=== PATIENT | male | born 1960 | race American Indian/Alaskan Native ===

== ENCOUNTER 2017-02-09 06:16 | Emergency (ER) | payer OTHER ==
[2017-02-09] MEDS ORDERED: PERCOCET 5/325 PO ONE (09:52)
[2017-02-09] MEDS ORDERED: TORADOL IM ONE (09:52)
--- NOTE | 2017-02-09 11:02 | XRay Report ---
LEFT HIP RADIOGRAPHS INDICATION: Status post fall. Right groin pain. COMPARISON: None similar. FINDINGS: AP pelvic, frog-leg and crosstable lateral radiographs, 4 images demonstrate intact SI and hip joints and remainder pelvic bony articulation. Lower lumbar degenerative spurring. Right hemipelvic phleboliths. Nonobstructive bowel gas pattern. CONCLUSION: No acute plain radiographic abnormality, as described. Thank you for the opportunity to participate in this patient's care.
--- NOTE | 2017-02-09 11:04 | XRay Report ---
LEFT KNEE RADIOGRAPHS INDICATION: Left knee pain and swelling. Status post fall. COMPARISON: None similar at this institution. FINDINGS: AP, lateral, oblique and sunrise views of the left knee, 5 images demonstrate 2 horizontal proximal tibial metaphyseal threaded screws with slightly inferior old healed metadiaphyseal deformity. Knee joint tilt with moderate tricompartmental degenerative changes, including spurring and joint space narrowing noted, more so suspected involving the patellofemoral and lateral compartments. Faint chondrocalcinosis may also be present. Osteopenia/osteoporosis. Superior patellar enthesophytes. Moderate to large suprapatellar effusion. CONCLUSION: Left knee postsurgical changes, moderately advanced tricompartment degenerative changes and suprapatellar effusion, amongst others, as described. Please correlate. Thank you for the opportunity to participate in this patient's care.
--- NOTE | 2017-02-09 11:30 | Emergency Department Report ---
ED Extremity Problem HPI - General Chief complaint: Extremity Injury, Lower Stated complaint: LEG PAIN Time Seen by Provider: 02/09/17 09:45 Source: patient Mode of arrival: Ambulatory Limitations: No Limitations - History of Present Illness Initial comments: 57 year male with a past medical history left knee surgery presents to hospital complaints of pain to right groin and left knee after fall yesterday. Patient states he was walking to the bus stop in the dark and tripped over a rock and fell. No appearance of head injury or LOC. Patient complains of moderate pain to right groin and left knee down to distal leg but not including ankle and foot. Pain is constant, aching and throbbing, worse with movement and palpation. No alleviating factors reported. No reports of back pain or urinary incontinence. Severity scale (0 -10): 7 - Related Data Previous Rx's Medication Instructions Recorded Last Taken Type HYDROcodone/APAP 5-325 [[place] 1 each PO Q6HR PRN #20 tablet 02/09/17 Unknown Rx 5/325] Ibuprofen [Motrin] 800 mg PO Q8HR PRN #30 tablet 02/09/17 Unknown Rx Allergies Allergy/AdvReac Type Severity Reaction Status Date / Time No Known Allergies Allergy Unverified 06/18/14 05:07 ED Review of Systems ROS: Stated complaint: LEG PAIN Other details as noted in HPI Comment: All other systems reviewed and negative Other: Constitutional: No fevers chills or weight loss Eyes: No eye pain visual changes or discharge ENT: No ear pain or throat pain Neck: Denies pain Respiratory: Denies cough wheezing shortness of breath Cardiovascular: Denies chest pain, palpitations, syncope GI: Denies abdominal pain, nausea, vomiting, diarrhea : Denies dysuria Musculoskeletal: as per hpi Skin: Denies rash, lesions, erythema Neurologic: Denies headache, numbness, weakness Psychiatric: Denies suicidal ideation, hallucinations ED Past Medical Hx - Past Medical History Previous Medical History?: No - Surgical History Additional Surgical History: left knee surgery - Social History Smoking Status: Current Every Day Smoker Substance Use Type: None - Medications Home Medications: Home Medications Medication Instructions Recorded Confirmed Last Taken Type HYDROcodone/APAP 5-325 [[place] 1 each PO Q6HR PRN #20 tablet 02/09/17 Unknown Rx 5/325] Ibuprofen [Motrin] 800 mg PO Q8HR PRN #30 tablet 02/09/17 Unknown Rx ED Physical Exam - General Limitations: No Limitations - Other Other exam information: General: No limitations, patient is alert in no acute distress Head exam: Atraumatic, normocephalic Eyes exam: Normal appearance, pupils equal reactive to light, extraocular movements intact ENT: Moist mucous membrane, normal oropharynx Neck exam: Normal inspection, full range of motion, no meningismus nontender Respiratory exam: Clear to auscultation bilateral, no wheezes, rales, crackles Cardiovascular: Normal rate and rhythm, normal heart sounds Abdomen: Soft, nondistended, and nontender, with normal bowel sounds, no rebound, or guarding Extremity: Right inguinal pain with full range of motion of hip without shortening or deformity. Generalized left knee swelling with anterior tenderness. Pain with flexion. No deformity. 2+ DP pulses equal bilateral Back: Normal Inspection, full range of motion, no tenderness Neurologic: Alert, oriented x3, cranial nerves intact, no motor or sensory deficit Psychiatric: normal affect, normal mood Skin: Warm, dry, intact ED Course Vital Signs 02/09/17 02/09/17 06:36 09:54 Temperature 98.1 F 97.6 F Pulse Rate 75 69 Respiratory 16 Rate Blood Pressure 160/115 Blood Pressure 144/101 [Right] O2 Sat by Pulse 100 Oximetry - Reevaluation(s) Reevaluation #1: 02/09/17 11:55 BP improved without requirement meds for still borderline elevated ED Medical Decision Making - Radiology Data Radiology results: report reviewed Left hip x-ray: No acute finding Right knee x-ray: Left knee postsurgical changes. Mildly advanced tricompartmental degenerative changes with suprapatellar effusion. - Medical Decision Making Patient be discharged home with pain meds. Patient encouraged to follow-up with primary care doctor for blood pressure recheck given elevated BP. Orthopedic for also will be provided he declined offer for crutches - Differential Diagnosis fxt, contusion, sprain, new onset hypertension Critical Care Time: No Critical care attestation.: If time is entered above; I have spent that time in minutes in the direct care of this critically ill patient, excluding procedure time. ED Disposition Clinical Impression: Contusion of left knee, Strain of right inguinal muscle, Elevated blood pressure Degenerative arthritis of knee Qualifiers: Laterality: left Disposition: DISCHARGED TO HOME OR SELFCARE Is pt being admited?: No Does the pt Need Aspirin: No Condition: Stable Instructions: Knee Sprain (ED), How to Take a Blood Pressure (ED) Additional Instructions: Take the medication as prescribed. Return if symptoms worsen. Follow-up with your doctor regarding her blood pressure for recheck and evaluation. Follow with orthopedic doctor for further management of your knee Prescriptions: HYDROcodone/APAP 5-325 [[place] 5/325] 1 each PO Q6HR PRN #20 tablet PRN Reason: Pain Ibuprofen [Motrin] 800 mg PO Q8HR PRN #30 tablet PRN Reason: Pain Referrals: JOSEE DALLAS MD [Staff Physician] - 3-5 Days PRIMARY CAREMD [Primary Care Provider] - 3-5 Days Forms: Work/School Release Form(ED) Time of Disposition: 11:52
[2017-02-09 12:05] VITALS: BP 145/105
== END 2017-02-09 12:06 | disposition home or self-care (01) ==
LOC: ED 06:16
DX: S39.011A Strain of muscle, fascia and tendon of abdomen, initial encounter (principal); S80.02XA Contusion of left knee, initial encounter; M17.12 Unilateral primary osteoarthritis, left knee; R03.0 Elevated blood-pressure reading, without diagnosis of hypertension; F17.200 Nicotine dependence, unspecified, uncomplicated; W20.8XXA Other cause of strike by thrown, projected or falling object, initial encounter; Y93.01 Activity, walking, marching and hiking; Y99.8 Other external cause status; Y92.521 Bus station as the place of occurrence of the external cause
CPT/HCPCS: 73502; 73564; 96372; 99283; J1885

== ENCOUNTER 2017-04-29 06:54 | Emergency (ER) | payer OTHER ==
[2017-04-29] MEDS ORDERED: NACL 0.9% 1000 ML 1,000 ML IV ONE (07:14)
[2017-04-29 08:01] LABS: Basophils % (Auto) 0.7 % (0.0-1.8); Hematocrit 44.1 % (35.5-45.6); Hemoglobin 14.6 gm/dl (11.8-15.2); Mean Corpuscular HGB Conc 33 % (32-34); Mean Corpuscular Hemoglobin 29 pg (28-32); Mean Corpuscular Volume 89 fl (84-94); Platelet Count 291 K/mm3 (140-440); Red Blood Count 4.97 M/mm3 (3.65-5.03); Red Cell Distribution Width 15.8 % (13.2-15.2); White Blood Count 9.4 K/mm3 (4.5-11.0)
[2017-04-29 08:09] LABS: INR 0.99 (0.87-1.13)
[2017-04-29 08:10] LABS: Partial Thromboplastin Time 28.5 Sec. (24.2-36.6)
[2017-04-29 09:46] LABS: Alanine Aminotransferase 20 units/L (7-56); Albumin 4.3 g/dL (3.9-5); Albumin/Globulin Ratio 1.4 %; Alkaline Phosphatase 64 units/L (35-129); Anion Gap 20 mmol/L; BUN/Creatinine Ratio 10.83; Blood Urea Nitrogen 13 mg/dL (9-20); Calcium 9.2 mg/dL (8.4-10.2); Carbon Dioxide 23 mmol/L (22-30); Chloride 104.3 mmol/L (98-107); Glucose 98 mg/dL (75-100); Lipase 21 units/L (13-60); Potassium 4.8 mmol/L (3.6-5.0); Sodium 142 mmol/L (137-145); Total Protein 7.3 g/dL (6.3-8.2)
--- NOTE | 2017-04-29 16:35 | Emergency Department Report ---
ED GI Bleed HPI - General Chief complaint: GI Bleed Stated complaint: BLOOD IN STOOL Time Seen by Provider: 04/29/17 16:02 Source: patient Mode of arrival: Ambulatory Limitations: No Limitations - History of Present Illness complaint: blood on toilet paper, blood streaked stool Onset/Timin -: Gradual, days(s) Radiation: none Severity scale (0 -10): 1 Quality: painless Consistency: intermittent Improves with: none Worsens with: none Context: hemorrhoids Associated Symptoms: denies: abdominal pain, nausea, vomiting, epistaxis, fever/ chills, headaches, loss of appetite, malaise, easy bruising, rash, shortness of breath, syncope, weakness - Related Data Previous Rx's Medication Instructions Recorded Last Taken Type HYDROcodone/APAP 5-325 [[place] 1 each PO Q6HR PRN #20 tablet 02/09/17 Unknown Rx 5/325] Ibuprofen [Motrin] 800 mg PO Q8HR PRN #30 tablet 02/09/17 Unknown Rx Allergies Allergy/AdvReac Type Severity Reaction Status Date / Time No Known Allergies Allergy Unverified 06/18/14 05:07 ED Review of Systems ROS: Stated complaint: BLOOD IN STOOL Other details as noted in HPI Constitutional: denies: chills, fever Eyes: denies: eye pain, eye discharge, vision change ENT: denies: ear pain, throat pain Respiratory: denies: cough, shortness of breath, wheezing Cardiovascular: denies: chest pain, palpitations Endocrine: no symptoms reported Gastrointestinal: denies: abdominal pain, nausea, diarrhea Genitourinary: denies: urgency, dysuria Musculoskeletal: denies: back pain, joint swelling, arthralgia Skin: denies: rash, lesions Neurological: denies: headache, weakness, paresthesias Psychiatric: denies: anxiety, depression Hematological/Lymphatic: denies: easy bleeding, easy bruising ED Past Medical Hx - Past Medical History Previous Medical History?: No - Surgical History Past Surgical History?: Yes Additional Surgical History: left knee surgery - Social History Smoking Status: Current Every Day Smoker Substance Use Type: Alcohol - Medications Home Medications: Home Medications Medication Instructions Recorded Confirmed Last Taken Type HYDROcodone/APAP 5-325 [[place] 1 each PO Q6HR PRN #20 tablet 02/09/17 Unknown Rx 5/325] Ibuprofen [Motrin] 800 mg PO Q8HR PRN #30 tablet 02/09/17 Unknown Rx ED Physical Exam - General Limitations: No Limitations General appearance: alert, in no apparent distress - Head Head exam: Present: atraumatic, normocephalic - Eye Eye exam: Present: normal appearance - ENT ENT exam: Present: mucous membranes moist - Neck Neck exam: Present: normal inspection - Respiratory Respiratory exam: Present: normal lung sounds bilaterally. Absent: respiratory distress - Cardiovascular Cardiovascular Exam: Present: regular rate, normal rhythm. Absent: systolic murmur, diastolic murmur, rubs, gallop - GI/Abdominal GI/Abdominal exam: Present: soft, normal bowel sounds. Absent: distended, tenderness, guarding, rebound, rigid, hyperactive bowel sounds, hypoactive bowel sounds, organomegaly, mass, bruit, pulsatile mass, hernia - Rectal Rectal exam: Present: normal inspection, normal rectal tone, heme (-) stool, hemorrhoids, prostate enlargement. Absent: black stool, bloody stool, fecal impaction, mass, tenderness, normal prostate, prostate tenderness - Extremities Exam Extremities exam: Present: normal inspection - Back Exam Back exam: Present: normal inspection - Neurological Exam Neurological exam: Present: alert, oriented X3 - Psychiatric Psychiatric exam: Present: normal affect, normal mood - Skin Skin exam: Present: warm, dry, intact, normal color. Absent: rash ED Course Vital Signs 04/29/17 04/29/17 07:11 11:22 Temperature 98.3 F 97.5 F L Pulse Rate 84 72 Respiratory 20 14 Rate Blood Pressure 152/113 146/116 O2 Sat by Pulse 100 100 Oximetry ED Medical Decision Making - Lab Data Result diagrams: 04/29/17 07:26 04/29/17 07:26 - Medical Decision Making patient doing well , likely bleeding from hemorrhoids, will give follow up with GI for due of colonoscopy Critical care attestation.: If time is entered above; I have spent that time in minutes in the direct care of this critically ill patient, excluding procedure time. ED Disposition Clinical Impression: BRBPR (bright red blood per rectum) Disposition: DISCHARGED TO HOME OR SELFCARE Is pt being admited?: No Does the pt Need Aspirin: No Condition: Good Instructions: Hemorrhoids (ED), Rectal Bleeding (ED) Referrals: PRIMARY CARE, [Primary Care Provider] - 3-5 Days STANTON JAIME MD [Staff Physician] - 3-5 Days Forms: Accompanied Note, Work/School Release Form(ED) Time of Disposition: 16:35
[2017-04-29 16:59] VITALS: BP 142/92
== END 2017-04-29 16:58 | disposition home or self-care (01) ==
LOC: ED 06:54
DX: K62.5 Hemorrhage of anus and rectum (principal); F17.200 Nicotine dependence, unspecified, uncomplicated
CPT/HCPCS: 36415; 80053; 83690; 85025; 85610; 85730; 86850; 86900; 86901; 93005; 93010; 99284

== ENCOUNTER 2018-09-18 06:38 | Emergency (ER) | payer SELFPAY ==
[2018-09-18 07:21] VITALS: BP 144/103
--- NOTE | 2018-09-18 09:54 | Emergency Department Report ---
ED Rash HPI - HPI Chief Complaint: Skin Rash Stated Complaint: RT ARM REDNESS Time Seen by Provider: 09/18/18 09:08 Rash Symptoms: No Itching, No Facial Swelling, No Tongue/Oral Swelling, No Breathing Difficulties, No Choking Sensation, No Wheezing/Dyspnea, No Blistering , No Fever Severity: moderate Other History: Was cooking fish a couple days ago, and hot grease splattered on his right arm resulting in what he describes as spots. The spots are nonpruritic and does not cause any pain. He is worried about reaction. No discharge, fever, chills, sweats, shortness of breath or wheezing. Patient states medications to make the spots go away ED Review of Systems ROS: Stated complaint: RT ARM REDNESS Other details as noted in HPI Constitutional: denies: chills, fever Eyes: denies: eye pain, eye discharge, vision change ENT: denies: ear pain, throat pain Respiratory: denies: cough, shortness of breath, wheezing Cardiovascular: denies: chest pain, palpitations Endocrine: no symptoms reported Gastrointestinal: denies: abdominal pain, nausea, diarrhea Genitourinary: denies: urgency, dysuria Musculoskeletal: denies: back pain, joint swelling, arthralgia Skin: change in color. denies: rash, lesions Neurological: denies: headache, weakness, paresthesias Psychiatric: denies: anxiety, depression Hematological/Lymphatic: denies: easy bleeding, easy bruising ED Past Medical Hx - Past Medical History Previous Medical History?: No - Surgical History Past Surgical History?: Yes Additional Surgical History: left knee surgery - Social History Smoking Status: Current Every Day Smoker Substance Use Type: None - Medications Home Medications: Home Medications Medication Instructions Recorded Confirmed Last Taken Type HYDROcodone/APAP 5-325 [[place] 1 each PO Q6HR PRN #20 tablet 02/09/17 Unknown Rx 5/325] Ibuprofen [Motrin] 800 mg PO Q8HR PRN #30 tablet 02/09/17 Unknown Rx Triamcinolone 0.1% [Kenalog 0.1% 1 applic TP TID #1 tube 09/18/18 Unknown Rx CREAM] Rash Exam - Exam General: Vital signs noted. No distress. Alert and acting appropriately. HEENT: No Periorbital Edema, No Conjuctival Injection, No Chemosis, No Perioral Edema, No Tongue Edema, No Uvular Edema, No Compromised Airway, No Drooling Lungs: Yes Good Air Exchange (Normal Breath Sounds), No Wheezes, No Ronchi, No Stridor, No Cough, No Labored Respirations, No Retractions, No Use of Accessory Muscles, No Other Abnormal Lung Sounds Heart: Yes Regular, No Murmur Skin: Yes Other (8-9 hyperpigmented. One centimeters circular spots, some in the form of a drop to the right arm resembling healED first degree fischer. No blistering), No Urticarial Rash, No Maculopapular Rash, No Morbilliform rash, No Bulla(e), No Weeping, No Erythema, No Edema, No Encrustations Other: Positive: Abdomen Normal, Neurologic Normal, Musculoskeletal Normal ED Course Vital Signs 09/18/18 07:19 Temperature 97.4 F L Pulse Rate 72 Respiratory 16 Rate Blood Pressure 144/103 O2 Sat by Pulse 99 Oximetry ED Medical Decision Making - Differential Diagnosis lichen planus, atypical viral exanthem, contact dermatitis Critical care attestation.: If time is entered above; I have spent that time in minutes in the direct care of this critically ill patient, excluding procedure time. ED Disposition Clinical Impression: Skin abnormality Disposition: DC-01 TO HOME OR SELFCARE Is pt being admited?: No Does the pt Need Aspirin: No Condition: Stable Instructions: Acute Wound Care (ED), Superficial Burn (ED) Prescriptions: Triamcinolone 0.1% [Kenalog 0.1% CREAM] 1 applic TP TID #1 tube Referrals: PRIMARY CARE, [Primary Care Provider] - 3-5 Days
== END 2018-09-18 10:00 | disposition home or self-care (01) ==
LOC: ED 06:38
DX: L98.9 Disorder of the skin and subcutaneous tissue, unspecified (principal); F17.200 Nicotine dependence, unspecified, uncomplicated
CPT/HCPCS: 99282

== ENCOUNTER 2021-02-04 09:13 | Emergency (ER) | payer SELFPAY ==
[2021-02-04 09:22] VITALS: BP 171/126
--- NOTE | 2021-02-04 09:28 | Emergency Department Report ---
Blank Doc - Documentation Documentation: 61-year-old male that presents with abdominal pain with nausea and blood in st ool. History of ulcers. 1- This initial assessment/diagnostic orders/clinical plan/ treatment(s) is/are subject to change based on pt's health status, clinical progression and re- assessment by fellow clinical providers in the ED. Further treatment and workup at subsequent clinical provers discretion. Patient/guardians urged not to elope from ED as their condition may be serious if not clinically assessed and managed. 2-labs 3-UA
[2021-02-04 09:57] LABS: Basophils # (Auto) 0.1 K/mm3 (0.0-0.1); Basophils % (Auto) 0.9 % (0.0-1.8); Eosinophils # (Auto) 0.1 K/mm3 (0.0-0.4); Eosinophils % (Auto) 0.9 % (0.0-4.3); Hematocrit 45.8 % (35.5-45.6); Hemoglobin 15.3 gm/dl (11.8-15.2); Lymphocytes # (Auto) 1.1 K/mm3 (1.2-5.4); Lymphocytes % (Auto) 16.4 % (13.4-35.0); Mean Corpuscular HGB Conc 33 % (32-34); Mean Corpuscular Volume 91 fl (84-94); Monocytes # (Auto) 0.5 K/mm3 (0.0-0.8); Monocytes % (Auto) 7.2 % (0.0-7.3); Platelet Count 325 K/mm3 (140-440); Red Blood Count 5.04 M/mm3 (3.65-5.03); Red Cell Distribution Width 16.9 % (13.2-15.2)
[2021-02-04 09:59] LABS: Bilirubin,Urine NEG (Negative); Blood,Urine SM (Negative); Color,Urine Yellow (Yellow); Protein,Urine <15 mg/dL mg/dL (Negative); Urobilinogen,Urine < 2.0 mg/dL (<2.0)
[2021-02-04 10:05] LABS: INR 1.01 (0.87-1.13)
[2021-02-04 10:06] LABS: Partial Thromboplastin Time 29.5 Sec. (24.2-36.6)
[2021-02-04 10:16] LABS: Alanine Aminotransferase 20 units/L (7-56); Albumin 4.5 g/dL (3.9-5); BUN/Creatinine Ratio 6; Blood Urea Nitrogen 6 mg/dL (9-20); Calcium 8.9 mg/dL (8.4-10.2); Hemolysis Index 13
[2021-02-04] MEDS ORDERED: PANTOPRAZOLE 40 MG INJ IV ONE (10:25)
[2021-02-04] MEDS ORDERED: SUCRALFATE 1 GM/10 ML ORAL LIQD PO ONE (10:25)
--- NOTE | 2021-02-04 11:04 | Emergency Department Report ---
ED General Adult HPI - General Chief complaint: Abdominal Pain Stated complaint: ULCER Time Seen by Provider: 02/04/21 09:19 Source: patient Mode of arrival: Ambulatory Limitations: No Limitations - History of Present Illness Initial comments: Patient presents to the emergency department with a chief complaint of abdominal pain that is located just below his bellybutton. Patient states he has a history of a gastric ulcer states this pain feels very similar. He denies any radiation of his abdominal pain. Patient states 2 days ago he had an episode of bright red blood per rectum but that has now resolved. Patient denies chest pain, shortness breath, or headache -: Sudden Location: abdomen Radiation: periumbillical Severity scale (0 -10): 5 Quality: burning, sharp Consistency: constant Improves with: none Worsens with: none Associated Symptoms: denies other symptoms Treatments Prior to Arrival: none - Related Data Previous Rx's Medication Instructions Recorded Last Taken Type Ondansetron [Zofran Odt] 4 mg PO Q8HR PRN #10 tab.rapdis 12/20/18 Unknown Rx Pantoprazole [Protonix TAB] 20 mg PO DAILY #30 tablet. 02/04/21 Unknown Rx Sucralfate [Carafate] 1 gm PO Q6HR #30 tablet 02/04/21 Unknown Rx Allergies Allergy/AdvReac Type Severity Reaction Status Date / Time No Known Allergies Allergy Unverified 06/18/14 05:07 ED Review of Systems ROS: Stated complaint: ULCER Other details as noted in HPI Comment: All other systems reviewed and negative Constitutional: denies: chills, fever Eyes: denies: eye pain, eye discharge, vision change ENT: denies: ear pain, throat pain Respiratory: denies: cough, shortness of breath, wheezing Cardiovascular: denies: chest pain, palpitations Endocrine: no symptoms reported Gastrointestinal: abdominal pain. denies: nausea, diarrhea Genitourinary: denies: urgency, dysuria Musculoskeletal: denies: back pain, joint swelling, arthralgia Skin: denies: rash, lesions Neurological: denies: headache, weakness, paresthesias Psychiatric: denies: anxiety, depression Hematological/Lymphatic: denies: easy bleeding, easy bruising ED Past Medical Hx - Past Medical History Previous Medical History?: Yes Additional medical history: gastric ulcer - Surgical History Past Surgical History?: Yes Additional Surgical History: left knee surgery - Social History Smoking Status: Never Smoker Substance Use Type: None - Medications Home Medications: Home Medications Medication Instructions Recorded Confirmed Last Taken Type Ondansetron [Zofran Odt] 4 mg PO Q8HR PRN #10 tab.rapdis 12/20/18 Unknown Rx Pantoprazole [Protonix TAB] 20 mg PO DAILY #30 tablet. 02/04/21 Unknown Rx Sucralfate [Carafate] 1 gm PO Q6HR #30 tablet 02/04/21 Unknown Rx ED Physical Exam - General Limitations: No Limitations General appearance: alert, in no apparent distress - Head Head exam: Present: atraumatic, normocephalic - Eye Eye exam: Present: normal appearance - ENT ENT exam: Present: mucous membranes moist - Neck Neck exam: Present: normal inspection - Respiratory Respiratory exam: Present: normal lung sounds bilaterally. Absent: respiratory distress - Cardiovascular Cardiovascular Exam: Present: regular rate, normal rhythm. Absent: systolic murmur, diastolic murmur, rubs, gallop - GI/Abdominal GI/Abdominal exam: Present: soft, tenderness (Mild tenderness to palpation of inferior to the umbilicus), normal bowel sounds - Rectal Rectal exam: Present: deferred - Extremities Exam Extremities exam: Present: normal inspection - Back Exam Back exam: Present: normal inspection - Neurological Exam Neurological exam: Present: alert, oriented X3, CN II-XII intact. Absent: motor sensory deficit - Psychiatric Psychiatric exam: Present: normal affect, normal mood - Skin Skin exam: Present: warm, dry, intact, normal color. Absent: rash ED Course Vital Signs 02/04/21 02/04/21 09:18 09:22 Temperature 98.8 F Pulse Rate 87 Respiratory 20 Rate Blood Pressure 171/126 O2 Sat by Pulse 98 Oximetry ED Medical Decision Making - Lab Data Result diagrams: 02/04/21 09:29 02/04/21 09:29 Lab Results 02/04/21 02/04/21 02/04/21 Range/Units 09:29 09:29 09:29 WBC 6.8 (4.5-11.0) K/mm3 RBC 5.04 H (3.65-5.03) M/mm3 Hgb 15.3 H (11.8-15.2) gm/dl Hct 45.8 H (35.5-45.6) % MCV 91 (84-94) fl MCH 30 (28-32) pg MCHC 33 (32-34) % RDW 16.9 H (13.2-15.2) % Plt Count 325 (140-440) K/mm3 Lymph % (Auto) 16.4 (13.4-35.0) % [place] % (Auto) 7.2 (0.0-7.3) % Eos % (Auto) 0.9 (0.0-4.3) % Baso % (Auto) 0.9 (0.0-1.8) % Lymph # (Auto) 1.1 L (1.2-5.4) K/mm3 [place] # (Auto) 0.5 (0.0-0.8) K/mm3 Eos # (Auto) 0.1 (0.0-0.4) K/mm3 Baso # (Auto) 0.1 (0.0-0.1) K/mm3 Seg Neutrophils % 74.6 H (40.0-70.0) % Seg Neutrophils # 5.1 (1.8-7.7) K/mm3 PT 13.1 (12.2-14.9) Sec. INR 1.01 (0.87-1.13) APTT 29.5 (24.2-36.6) Sec. Sodium 135 L (137-145) mmol/L Potassium 4.0 (3.6-5.0) mmol/L Chloride 98.6 (98-107) mmol/L Carbon Dioxide 24 (22-30) mmol/L Anion Gap 16 mmol/L BUN 6 L (9-20) mg/dL Creatinine 1.0 (0.8-1.3) mg/dL Estimated GFR > 60 ml/min BUN/Creatinine Ratio 6 % Glucose 110 H (75-100) mg/dL Calcium 8.9 (8.4-10.2) mg/dL Total Bilirubin 0.80 (0.1-1.2) mg/dL AST 27 (5-40) units/L ALT 20 (7-56) units/L Alkaline Phosphatase 90 (35-129) units/L Total Protein 7.8 (6.3-8.2) g/dL Albumin 4.5 (3.9-5) g/dL Albumin/Globulin Ratio 1.4 % Lipase 37 (13-60) units/L Urine Color (Yellow) Urine Turbidity (Clear) Urine pH (5.0-7.0) Ur Specific [place] (1.003-1.030) Urine Protein (Negative) mg/dL Urine Glucose (UA) (Negative) mg/dL Urine Ketones (Negative) mg/dL Urine Blood (Negative) Urine Nitrite (Negative) Urine Bilirubin (Negative) Urine Urobilinogen (<2.0) mg/dL Ur Leukocyte Esterase (Negative) Urine WBC (Auto) (0.0-6.0) /HPF Urine RBC (Auto) (0.0-6.0) /HPF U Epithel Cells (Auto) (0-13.0) /HPF 02/04/21 Range/Units 09:34 WBC (4.5-11.0) K/mm3 RBC (3.65-5.03) M/mm3 Hgb (11.8-15.2) gm/dl Hct (35.5-45.6) % MCV (84-94) fl MCH (28-32) pg MCHC (32-34) % RDW (13.2-15.2) % Plt Count (140-440) K/mm3 Lymph % (Auto) (13.4-35.0) % [place] % (Auto) (0.0-7.3) % Eos % (Auto) (0.0-4.3) % Baso % (Auto) (0.0-1.8) % Lymph # (Auto) (1.2-5.4) K/mm3 [place] # (Auto) (0.0-0.8) K/mm3 Eos # (Auto) (0.0-0.4) K/mm3 Baso # (Auto) (0.0-0.1) K/mm3 Seg Neutrophils % (40.0-70.0) % Seg Neutrophils # (1.8-7.7) K/mm3 PT (12.2-14.9) Sec. INR (0.87-1.13) APTT (24.2-36.6) Sec. Sodium (137-145) mmol/L Potassium (3.6-5.0) mmol/L Chloride (98-107) mmol/L Carbon Dioxide (22-30) mmol/L Anion Gap mmol/L BUN (9-20) mg/dL Creatinine (0.8-1.3) mg/dL Estimated GFR ml/min BUN/Creatinine Ratio % Glucose (75-100) mg/dL Calcium (8.4-10.2) mg/dL Total Bilirubin (0.1-1.2) mg/dL AST (5-40) units/L ALT (7-56) units/L Alkaline Phosphatase (35-129) units/L Total Protein (6.3-8.2) g/dL Albumin (3.9-5) g/dL Albumin/Globulin Ratio % Lipase (13-60) units/L Urine Color Yellow (Yellow) Urine Turbidity Clear (Clear) Urine pH 6.0 (5.0-7.0) Ur Specific [place] 1.005 (1.003-1.030) Urine Protein <15 mg/dl (Negative) mg/dL Urine Glucose (UA) Neg (Negative) mg/dL Urine Ketones Neg (Negative) mg/dL Urine Blood Sm (Negative) Urine Nitrite Neg (Negative) Urine Bilirubin Neg (Negative) Urine Urobilinogen < 2.0 (<2.0) mg/dL Ur Leukocyte Esterase Neg (Negative) Urine WBC (Auto) 1.0 (0.0-6.0) /HPF Urine RBC (Auto) 2.0 (0.0-6.0) /HPF U Epithel Cells (Auto) < 1.0 (0-13.0) /HPF - Radiology Data Radiology results: report reviewed - Medical Decision Making Discussed results with patient Patient offered admission he politely declined stating he has to go to work tomorrow and does not want to stay in the hospital. Discussed with patient need to follow-up with GI and his primary care physician Critical care attestation.: If time is entered above; I have spent that time in minutes in the direct care of this critically ill patient, excluding procedure time. ED Disposition Clinical Impression: Abdominal pain, Rectal bleeding Disposition: DC-01 TO HOME OR SELFCARE Is pt being admited?: No Does the pt Need Aspirin: No Condition: Stable Instructions: Rectal Bleeding, Abdominal Pain, Adult Additional Instructions: return if worse Prescriptions: Sucralfate [Carafate] 1 gm PO Q6HR #30 tablet Pantoprazole [Protonix TAB] 20 mg PO DAILY #30 tablet. Referrals: PRIMARY CARE, [Referring] - 3-5 Days CARBUCCIA,SATHYA, MD [Staff Physician] - 3-5 Days EDY STERLING MD [Staff Physician] - 3-5 Days Time of Disposition: 12:23
--- NOTE | 2021-02-04 11:53 | Cat Scan Report ---
CT ABDOMEN AND PELVIS WITH CONTRAST HISTORY: Abdominal pain. History of gastric ulcer COMPARISON: None. TECHNIQUE: Axial CT images were obtained through the abdomen and pelvis after 100 cc of IV contrast. Sagittal and coronal reformatted images. All CT scans at this location are performed using CT dose re duction for ALARA by means of automated exposure control. FINDINGS: CT ABDOMEN: Lung Bases: Clear. Liver: No significant abnormality. Biliary: No significant abnormality. Spleen: No significant abnormality. Unenlarged. Pancreas: No significant abnormality. Adrenals: No significant abnormality. Kidneys: No significant abnormality. Lymphatics: No lymphadenopathy. Vasculature: No significant abnormality. Bowel/Peritoneum: No significant abnormality. No free air. No free fluid. The appendix is normal. Min imal diverticulosis of the distal colon is noted. The stomach is poorly distended but no obvious find ings of ulcer disease. CT PELVIS: : No significant abnormality. Osseous Structures: No significant abnormality. Additional Findings: None IMPRESSION: No acute abnormality is appreciated. Signer Name: Rey Tracy Jr, MD Signed: 02/04/2021 11:48 AM Workstation Name: [id number]
== END 2021-02-04 12:56 | disposition home or self-care (01) ==
LOC: ED 09:13
DX: K62.5 Hemorrhage of anus and rectum (principal); R10.9 Unspecified abdominal pain; Z79.899 Other long term (current) drug therapy; Z98.890 Other specified postprocedural states
CPT/HCPCS: 36415; 74177; 80053; 81001; 83690; 85025; 85610; 85730; 96374; 99284; C9113; Q9967